=== PATIENT | male | born 1965 | race African-American/Black ===

== ENCOUNTER 2025-02-11 04:52 | Emergency (ER) | payer BC, SELFPAY ==
--- NOTE | ~2025-02-11 | CT_ITS ---
Noncontrast CT scan of the lumbar spine CLINICAL HISTORY: Pain TECHNIQUE: Axial noncontrast imaging of the lumbar spine was performed. Sagittal and coronal reformat hazel images were constructed. Dose reduction technique was used on this scan by utilizing automated ex posure control and iterative reconstruction technique. The dose-length product (DLP) was 1194.38 mGy- cm. FINDINGS: There is no fracture or subluxation of the lumbar spine. Vertebral bodies maintain normal h eight and alignment. At L1-L2, there is no significant disc bulge or herniation. There is mild facet hypertrophy. No spina l canal stenosis or neural foraminal narrowing. At L2-L3, there is no significant disc bulge or herniation. There is moderate facet/ligamentum flavum hypertrophy. There is mild central canal stenosis. Neural foramina are preserved. At L3-L4, there is advanced degenerative disc narrowing. There is disc bulge and severe facet arthrop athy. There is moderate central canal stenosis/thecal sac compression. There is severe left neural fo raminal narrowing, and moderate to severe right neural foraminal narrowing. At L4-L5, there is mild disc bulge with moderate facet hypertrophy. There is moderate central canal s tenosis/thecal sac compression. There is mild bilateral neural foraminal narrowing. L5-S1, there is no significant disc bulge or herniation. No spinal canal stenosis or neural foraminal narrowing. Paravertebral soft tissues are unremarkable. Impression: Moderate to advanced degenerative spondylosis at L3-L4 and L4-L5, as detailed above. Mild to moderate degenerative spondylosis at L2-L3. Reviewed, dictated and finalized at [facility]. Impression: Moderate to advanced degenerative spondylosis at L3-L4 and L4-L5, as detailed shelley agrawal. Mild to moderate degenerative spondylosis at L2-L3.
--- NOTE | ~2025-02-11 | XR_ITS ---
Right Knee Technique: AP, lateral, and oblique views were obtained. Clinical History: Pain Findings: No fracture or dislocation is seen. Osseous alignment is anatomic. Joint spaces are preserv ed without degenerative or erosive change. Soft tissues are unremarkable. No joint effusion is seen. Impression: Unremarkable right knee radiographs. Reviewed, dictated and finalized at location . Impression: Unremarkable right knee radiographs.
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
[2025-02-11 04:57] VITALS: BP 187/107; PULSE 63; RESP 16; TEMP 36.3; O2SAT 100
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
[2025-02-11] MEDS: HYDROcodone/acetaminophen (*CRX) 5-325 MG TABLET 1 TAB PO (05:21)
--- OUTSIDE RECORDS SUMMARY | 2025-02-11 06:03 | XMS_ITS | Clinical Summary ---
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 Gender Identity Not on file Sexual Orientation Not on file Last Filed Vital Signs Vital Sign Reading Time Taken Comments Blood Pressure 168/65 12/14/2016 12:32 PM CDT Pulse 82 12/14/2016 12:32 PM CDT Temperature 36.7 C (98 F) 12/14/2016 12:32 PM CDT Respiratory Rate - - Oxygen Saturation 99% 12/14/2016 12:32 PM CDT Inhaled Oxygen Concentration - - Weight 106.6 kg (235 lb) 12/14/2016 12:32 PM CDT Height 185.4 cm (6' 1) 12/14/2016 12:32 PM CDT Body Mass Index 31 12/14/2016 12:32 PM CDT Plan of Treatment Health Maintenance Due Date Last Done Comments Colon Cancer Screening-Colonoscopy 1965 Depression Screening 1965 Hepatitis C Screening 1965 Prostate Cancer Screening-PSA 1965 DTaP/Tdap/Td Vaccine (1 - Tdap) 11/26/1974 Hepatitis B Screening 11/26/1981 Regular Well Visit/Exam 18-64 11/26/1981 Zoster Vaccine (2 of 2) 04/23/2023 02/26/2023 Covid-19 Vaccine ( season) 2024 08/07/2021, 11/12/2020, 10/22/2020 Influenza Vaccine (Season Ended) 2025 08/07/2021, 05/14/2019, 04/16/2015, Additional history exists Pneumococcal vaccine <65 Aged Out No longer eligible based on patient's age to complete this topic Insurance [employer] [place] Care Teams Director Business Development Relationship Specialty Start Date End Date Mark Paiz MD PCP - General Transplant Surgery 10/23/23
--- OUTSIDE RECORDS SUMMARY | 2025-02-11 06:03 | XMS_ITS | Clinical Summary ---
Author Organization [facility] Address [address] [place] [address] Care Team Providers Care Spinning Bath Person Name Role Phone Joyce Polk CESAR Primary Care Provider [phone] Allergies Active Allergy Reactions Criticality Noted Date Comments Vaccinium Angustifolium Anaphylaxis High 04/12/2018 Medications [place]-3 Fatty Acids (FISH OIL) 500 MG capsule Activ e aspirin EC (ASPIRIN EC) 81 MG tabletIndications: Health care maintenance Take 1 tablet (81 mg total) by mouth daily. Appointment with new provider needed for future refills. Call [phone] to schedule. 15 tablet 12/17/19 20 Active sucralfate 1 G tablet Take 1 tablet (1 g total) by mouth 4 (four) times daily. 120 tablet 08/19/19 22 Active famotidine 20 MG tablet Take 1 tablet (20 mg total) by mouth 2 (two) times daily. 60 tablet 08/19/19 22 Active HYDROcodone-acetam inophen 5-325 MG tabletIndications: Acute Pain < 3 Day Supply Take 1 tablet by mouth every 6 (six) hours as needed for Pain. Indications: Acute Pain < 3 Day Supply 7 tablet 08/19/19 22 Active ondansetron 4 MG disintegrating tablet Take 1 tablet (4 mg total) by mouth every 4 (four) hours as needed for Nausea. 20 tablet 08/19/19 22 Active lisinopril (PRINIVIL) 2.5 MG tabletIndications: Essential hypertension Take 1 tablet by mouth once daily 90 tablet 12/07/20 22 Active metFORMIN (GLUCOPHAGE) 1000 MG tabletIndications: Type 2 diabetes mellitus with hyperglycemia, without long-term current use of insulin ([facility]) TAKE 1 TABLET BY MOUTH TWICE DAILY WITH MEALS 180 tablet 07/19/20 Active metFORMIN (GLUCOPHAGE) 1000 MG tabletIndications: Type 2 diabetes mellitus with hyperglycemia, without long-term current use of insulin ([facility]) Take 1 tablet (1,000 mg total) by mouth 2 (two) times daily with meals. 180 tablet 07/19/20 Active lisinopril (PRINIVIL) 2.5 MG tabletIndications: Essential hypertension Take 1 tablet (2.5 mg total) by mouth daily. 90 tablet 07/19/20 Active SITagliptin (JANUVIA) 100 MG tabletIndications: Type 2 diabetes mellitus with hyperglycemia, without long-term current use of insulin ([facility]) Take 1 tablet (100 mg total) by mouth daily. 90 tablet 07/19/20 Active metoprolol succinate ER (TOPROL-XL) 50 MG 24 hr tabletIndications: Essential hypertension Take 1 tablet (50 mg total) by mouth daily. 90 tablet 07/19/20 Active glyBURIDE (DIABETA) 5 MG tabletIndications: Type 2 diabetes mellitus with hyperglycemia, without long-term current use of insulin ([facility]) Take 2 tablets (10 mg total) by mouth 2 (two) times daily with meals. 360 tablet 07/19/20 Active simvastatin (ZOCOR) 80 MG tabletIndications: Hypercholesterolem ia Take 1 tablet (80 mg total) by mouth nightly at bedtime. 90 tablet 1 08/02/20 Active Active Problems Problem Noted Date Diagnosed Date Snoring 12/08/2020 Pancreatitis ([facility]) 05/14/2019 Rotator cuff arthropathy of both shoulders 03/07 Traumatic complete tear of l eft rotator cuff, initial encounter 03/07/2019 Osteoarthritis of glenohumeral joints, bilateral 03/07/2019 Calculus of kidney 11/01/2017 Hydronephrosis, right 11/01/2017 DM2 (diabetes mellitus, type 2) ([facility] ) 11/01/2017 Hypertension 11/01/2017 Hypercholesterolemia 11/01/2017 Right ureteral stone 11/01/2017 [place] (acute kidney injury) 11/01/2017 Pulmonary nodules/lesions, multiple 12/15/2016 Erectile dysfunction 10/21/2015 Immunizations Immunization Administration Dates Next Due Afluria 36 MONTHS+ (Prefilled Syringe IIV4) 09/2018 Influenza Adult (Generic) 04/16/2015 Family History Medical History Relation Comments Diabetes Mother Hypertension Mother Relation Status Comments Mother Alive Social History Tobacco Use Types Packs/Day Years Used Date Smoking Tobacco: Never Smokeless Tobacco: Never Tobacco Cessation:Counseling Given: No Alcohol Use Standard Drinks/Week Comments Yes 0 (1 standard drink = 0.6 oz pur e alcohol) occassional vodka drinker PHQ-2 Answer Date Recorded PHQ-2 Score - If the patient scores above 3, please move on to questions 3-9 0 12/08/2020 Sex and Gender Information Value Date Recorded Sex Assigned at Not on file Legal Sex Male 5:09 PM CDT Gender Identity Not on file Sexual Orientation Not on file Last Filed Vital Signs Vital Sign Reading Time Taken Comments Blood Pressure 110/76 08/31/2021 7:03 AM [facility] Pulse 88 08/31/2021 7:03 AM [facility] Temperature 36.1 C (97 F) 08/31/2021 7:03 AM [facility] Respiratory Rate 18 08/31/2021 7:03 AM [facility] Oxygen Saturation 96% 08/31/2021 7:03 AM [facility] Inhaled Oxygen Concentration - - Weight 101.4 kg (223 lb 9.6 oz) 08/31/2021 7:03 AM [facility] Height 185.4 cm (6' 1) 08/31/2021 7:03 AM [facility] Body Mass Index 29.5 08/31/2021 7:03 AM [facility] Plan of Treatment Health Maintenance Due Date Last Done Comments Kidney Health Evaluation 1963 Annual Physical 11/26/1966 Diabetes: Retinopathy Eye Exam 11/26/1981 Hepatitis C 11/26/1981 DTaP, Tdap and Td Vaccines (1 - Tdap) 11/26/1982 Pneumococcal Vaccine: 50+ Years (1 of 2 - PCV) 11/26/1982 Zoster Vaccines (1 of 2) 11/26/2013 Lipid Panel 03/09/2021 03/09/2020, 100 10/2018, 10/28/2018, Additional history exists Hemoglobin A1C 10/12/2021 04/14/2021, 02/11, 05/15/2019, Additional history exists COVID-19 Vaccine (2023- season) 2024 PHQ-2 (Physician [place]) 08/13/2024 Colorectal Cancer Screening Colonoscopy (10 Years) 07/14/2030 07/14/2020, 07/14/2020, 05/06/2014 RSV Immunization or 60+ Years (1 - 1-dose 75+ series) 11/26/2038 Meningococcal B Vaccine Aged Out No l onger eligible based on patient's age to complete this topic Meningococcal Vaccine Aged Out No cait eric eligible based on patient's age to complete this topic RSV Immunizations Under 20 Months Aged Out No longer eligible based on patient's age to complete this topic Medical Devices Implanted Type Area Special Machine Operator Device Identifier Shelf Expiration Date Model / Serial / Lot [employer] Inlay [place] Multilength Implanted:Qty: 1 on 11/02/2017 by Nick Farrar MD at [facility] Stent Right: Ureter [employer] 04/21/2020 [id number] / / [id number] Procedures Procedure Name Priority Date/Time Associated Diagnosis Comments HEMOGLOBIN, GLYCOSYLATED Routine 04/14/2021 Type 2 diabetes mellitus with hyperglycemia, without long-term current use of insulin COLONOSCOPY Routine 07/14/2020 8:44 AM [facility] LIPID PANEL Routine 03/09/2020 7:55 AM CDT Type 2 diabetes mellitus without complication, without long-term current use of insulin Hypercholesterolemi a from Last 3 Months or Most Recently Relevant to Health Maintenance Results * HEMOGLOBIN, GLYCOSYLATED (04/14/2021) HGB A1C 11.1 % [facility] 04/14/2021 us Hermes Macisa MD LABORATORY Final Result [facility] [address] [place] [address], [place] [phone] * Colonoscopy (07/14/2020 8:44 AM [facility]) Meena Kumar MD - 07/14/2020 8:44 AM [facility] Meena Fink MD 07/14/2020 9:19 AM MEENA FINK MD, FACG, FACP COLONOSCOPY This is a 54-year-old male with history of DM II, HTN and HLD who now presents for colonoscopy for personal history of adenomatous colon polyps. GI review of systems is negative. No endocarditis risk factors. Allergies Allergen Reactions Blueberries [Vaccinium Angustifolium] Anaphylaxis Medications: see list. Family history: negative for colon cancer. VITALS: Stable. LUNGS: Clear. HEART: RRR. S1/S2 normal. ABDOMEN: NABS/NT. The procedure of colonoscopy, its indications, alternatives of barium studies and risks including perforation, bleeding, infection, reaction to medication as well as the possible need for blood or surgery were discussed with the patient prior to the procedure. The patient voices understanding, agrees to proceed and provides informed consent. COLONOSCOPY INDICATION: Personal history of colon polyps. POST-OP: Normal. SEDATION: Per Anesthesia PREP: Good. With the patient in the left lateral decubitus position, the Olympus [id number] colonoscope was introduced into the rectum and advanced easily to the Terminal Ileum. Careful inspection of the mucosa was made upon insertion and withdrawal of the endoscope. FINDINGS: Terminal ileum: distal 5 cm normal. Cecum, ascending colon, transverse colon, descending colon, sigmoid colon and rectum including retroflexion normal. No masses, polyps, AVMs, colitis or diverticulosis seen. No complications, blood loss or implants. ASSESSMENT AND PLAN: Personal history of colon polyps: - Colonoscopy 05-06-2014 with 8 mm SC tubular adenoma - Colonoscopy 07-14-2020: normal - Screening colonoscopy in 10 years Thank you for allowing me to care for your patient. He will follow-up with Dr. Macias as needed. Meena Fink M.D. Meena Fink MD GI PROCEDURE ORDERABLES Fin al Result * (ABNORMAL) LIPID PANEL (03/09/2020 7:55 AM CDT) CHOLESTEROL 215(H) <200 MG/DL 03/09/2020 9:00 AM CDT [facility] TRIGLYCERIDES 121 <150 MG/DL 03/09/2020 9:00 AM T [facility] HDL 38(L) >40.0 MG/DL 03/09/2020 9:00 AM T [facility] LDL (CALCULATED) 153(H) <100 MG/DL 03/09/2020 9:00 AM T [facility] NON HDL CHOLESTEROL 177(H) <130 MG/DL 03/09/2020 9:00 AM T [facility] CHOL/HDL RATIO 5.7(H) 0.0 - 4.5 03/09/2020 9:00 AM T [facility] VLDL CALCULATION 24 5 - 55 MG/DL 03/09/2020 9:00 AM [facility] LIPID INTERPRETATION 03/09/2020 9:00 AM [facility] Comment: [facility] CONCENSUS REPORT RECOMMENDATIONS: ADULT CHILD LOW RISK: CHOLESTEROL <200 <170 TRIGLYCERIDE <150 --- HDL >=60 --- LDL <100 <110 BORDERLINE: CHOLESTEROL 200-239 170-199 TRIGLYCERIDE 150-199 --- HDL 40-59 --- LDL 100-159 110-129 HIGH RISK: CHOLESTEROL >=240 >=200 TRIGLYCERIDE >=200 --- HDL <40 --- LDL >=160 >=130 03/09/2020 7:55 AM CDT Hermes Macias MD LABORATORY Final Result [facility] [address] [place] [address], [place] [phone] from Last 3 Months or Most Recently Relevant to Health Maintenance Insurance [facility] Advance Directives * Full Code (Latest Code Status on File) Date Activated Date Inactivated Comments 05/14/2019 4:10 AM 05/16/2019 4:28 PM Care Teams Spinning Bath Person Relationship Specialty Start Date End Date Joyce Polk NP [address] [place] [address] PCP - General NURSE PRACTITIONER 02/10/22
--- OUTSIDE RECORDS SUMMARY | 2025-02-11 06:03 | XMS_ITS | Encounter Summary ---
Author Organization [facility] Address [address] [place] [address] Care Team Providers Care Quality Assurance Supervisor Trim Name Role Phone Olivier Ross MD Primary Care Provider [phone] Encounter Details Date Type Department Care Team (Late st Contact Info) Description 02/09/2025 Telephone [facility] Primary Care - [facility] [id number] [place] [phone] [place] [address] [address] Social History Tobacco Use Types Packs/Day Years Used Date Smoking Tobacco: Never Alcohol Use Standard Drinks/Week Comments Yes 0 (1 standard drink = 0.6 oz pur e alcohol) occasionally Feeling Safe Answer Date Recorded Are you in a relationship wi th someone who hurts you emotionally and/or physically? No 01/06/2024 Sex and Gender Information Value Date Recorded Sex Assigned at Not on file Legal Sex Male 10:05 AM CDT Gender Identity Not on file Sexual Orientation Not on file documented as of this encounter Miscellaneous Notes * Telephone Encounter - Jeanie Aguero - 02/10/2025 8:34 AM CDT 02/09/2025 8:59 AM Attempted to contact patient/caregiver regarding Insulin and insurance. No answer. Left voice mail/message to return our call. If patient/caregiver calls back, contact center please transfer caller to N line or clinic back line. Jeanie Per Dr Ross: 1.''Please check with the pt regarding the status of his Insulins. What does he currently using forhis diabetes? 2. Does he have new insurance? plan is no longer active. Per PA dept : Rx ID: [id number] Rx Bin: [id number] Rx PCN: [id number] Rx Group: [id number] * Telephone Encounter - Jeanie Aguero - 02/09/2025 8:57 AM CDT 02/09/2025 8:59 AM Attempted to contact patient/caregiver regarding Insulin and insurance. No answer. Left voice mail/message to return our call. If patient/caregiver calls back, contact center please transfer caller to PCN line or clinic back line. Jeanie Per Dr Ross: 1.''Please check with the pt regarding the status of his Insulins. What does he currently using forhis diabetes? 2. Does he have new insurance? plan is no longer active. Per PA dept : Rx ID: [id number] Rx Bin: [id number] Rx PCN: [id number] Rx Group: [id number] documented in this encounter Plan of Treatment Upcoming Encounters Date Type Department Care Team (Late st Contact Info) Description 03/31/2025 8:20 AM CDT Office Visit [facility] Primary Care - [facility] [id number] [place] [id number] [place] [id number] [place] [phone] documented as of this encounter Visit Diagnoses Not on filedocumented in this encounter Care Teams Quality Assurance Supervisor Trim Relationship Specialty Start Date End Date Olivier Ross MD [address] [place] [phone] PCP - General Voice Network Administrator 09/08/24 documented as of this encounter
--- OUTSIDE RECORDS SUMMARY | 2025-02-11 06:03 | XMS_ITS | Referral Summary ---
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
--- OUTSIDE RECORDS SUMMARY | 2025-02-11 06:03 | XMS_ITS | Clinical Summary ---
Author Organization [facility] Address [address] [place] [address] Care Team Providers Care Head Of Design Name Role Phone Trung Fernandezony Jony Primary Care Provider Source Comments [facility],non-owned Affiliates and Associated Physician Practices is amultiple site organization consisting of ambulatory clinics and hospital sitesin [place], [place], [place] and [place]. This disclosure is being madepursuant to the Care Everywhere program and may not contain all information available regarding this patient. Last updated 18.[facility] Allergies No known active allergies Medications * Be aware that medications may not be up to date on this document. Alwaysverify current medications with the patient. lisinopril (PRINIVIL; ZESTRIL) 10 MG tablet Take 10 mg by mouth once daily Active simvastatin (ZOCOR) 10 MG tablet Take 10 mg by mouth at bedtime Active METFORMIN HCL ER, MOD, PO Active [place]-3 Fatty Acids (FISH OIL) 500 MG CAPS capsule Take by mouth 2 times daily Active aspirin (ASPIRIN) 325 MG tablet Take 325 mg by mouth once daily Active glyBURIDE (DIABETA; MICRONASE) 1.25 MG tablet Take 1.25 mg by mouth daily with breakfast Active vardenafil (LEVITRA) 20 MG tablet Take 1 Tab by mouth once daily as needed (as directed for Erection) 7 Tab 0 5 Active Family History Medical History Relation Name Comments Diabetes Father Hypercholesterolemia Father Diabetes Mother Hypercholesterolemia Mother Relation Name Status Comments Father (Age 50) Mother Alive Social History Tobacco Use Types Packs/Day Years Used Date Smoking Tobacco: Never Alcohol Use Standard Drinks/Week Comments No 0 (1 standard drink = 0.6 oz pur e alcohol) Sex and Gender Information Value Date Recorded Sex Assigned at Not on file Legal Sex Male 9:22 AM CDT Gender Identity Not on file Sexual Orientation Not on file Occupation Industry Job Start Date Job End Date sales Not on file Not on file Not on file Last Filed Vital Signs Vital Sign Reading Time Taken Comments Blood Pressure 104/76 04/28/2015 10:11 AM CDT Pulse 77 04/28/2015 10:11 AM CDT Temperature - - Respiratory Rate - - Oxygen Saturation - - Inhaled Oxygen Concentration - - Weight 106.6 kg (235 lb) 04/28/2015 10:11 AM CDT Height 185.4 cm (6' 1) 04/28/2015 10:11 AM CDT Body Mass Index 31 04/28/2015 10:11 AM CDT Plan of Treatment Health Maintenance Due Date Last Done Comments COLOGUARD (AGES 45-75) - COL ON CA SCREENING 1963 COLON MONITORING 1963 COLONOSCOPY - COLON CA SCREENING 1963 CT COLONOGRAPHY - COLON CA SCREENING 1963 Colorectal Cancer Screening 1963 FIT - COLON CA SCREENING 1963 FLEX SIG - COLON CA SCREENING 1963 HIV SCREENING 11/26/1978 HEPATITIS C SCREENING 11/22/1981 DTAP/TDAP/TD VACCINES (1 - Tdap) 11/26/1982 PNEUMOCOCCAL VACCINE 50+ (1 of 1 - PCV) 11/26/2013 ZOSTER VACCINE (1 of 2) 11/26/2013 COVID-19 VACCINE (1 - 2023-2 5 season) 2024 DEPRESSION SCREENING 08/13/2024 INFLUENZA VACCINE (Season Ended) 2025 Respiratory Syncytial Virus (RSV) Vaccine Pt: or over 60 yrs (1 - 1-dose 75+ series) 11/26/2038 HEPATITIS B VACCINE Aged Out No longe r eligible based on patient's age to complete this topic HIB VACCINE Aged Out No longer eligi ble based on patient's age to complete this topic HPV VACCINE Aged Out No longer eligi ble based on patient's age to complete this topic MENINGOCOCCAL (Group B) VACC INE SHARED DECISION-MAKING Aged Out No longer eligibl e based on patient's age to complete this topic MENINGOCOCCAL GROUPS A/C/Y/W VACCINE Aged Out No longer eligible b ased on patient's age to complete this topic Insurance Care Teams Head Of Design Relationship Specialty Start Date End Date Fracisco Fernandez DO PCP - General Family Medicine 04/28/15
--- OUTSIDE RECORDS SUMMARY | 2025-02-11 06:03 | XMS_ITS | Encounter Summary ---
Author Organization [facility] Address [address] [place] [address] Care Team Providers Care Table Cover Folder Name Role Phone Olivier Ross MD Primary Care Provider Encounter Details Date Type Department Care Team (Late Contact Info) Description 01/29/2025 Results Follow-Up [address] [address] Olivier Ross MD [address] [place] [phone] POC HEMOGLOBIN A1C Social History Tobacco Use Types Packs/Day Years [...] on file documented as of this encounter Plan of Treatment Upcoming Encounters Date Type Department Care Team (Late st Contact Info) Description 03/31/2025 8:20 AM CDT Office Visit [facility] - [address] [address] Olivier Ross MD [address] [place] [phone] documented as of this encounter Visit Diagnoses Not on filedocumented in this encounter Care Teams Table Cover Folder Relationship Specialty [place] [address] [address] PCP - General Steamer Tender 09/08/24 documented as of this encounter
--- OUTSIDE RECORDS SUMMARY | 2025-02-11 06:03 | XMS_ITS | Data Portability ---
Author Organization [facility], [facility] Address [address] [place] [address] Assessment No assessment recorded. Plan of Treatment Reminders Order Date Submit Date Provider Last Modified By Organization Details Last Modified Time Details Appointments None record ed. Lab None record ed. Referral None record ed. Procedures None record ed. Surgeries None record ed. Imaging None record ed. Medication Orders None record ed. Patient TargetsNo targets recorded. Patient Instructions Encounter Date Encounter Id Patient Instructions Last Modified By Organization Details Last Modified Time 12/04/2019 [id number] Erection Problems: Care Instructions [email or web address] Not available 12/04/2019 11:44:12 he had a good result from the Tri Mix test dose and I will write him a prescription and I will start him at 15 units and I will increase to a maximum of 20 units and I also gave him very detailed instructions My nurse gave him the reversal agent and we will order the Tri Mix [email or web address] Not available 12/04/2019 11:44:03 05/31/2020 [id number] with this patient's diabetes and his hypertension the Tri Mix injections. Working and we just started those in November and they were working very well and now he has gone up to very high dose and volume with really no results I told him he will need a penile prosthesis. I mentioned to him that there was a urologist named Dr. Adan in [place] that I think does penile prosthesis but he lives closer to [facility] so we will give him the name of someone else in that area code is he came here to see me years ago because I took care of him as a patient when I was covering [facility] and he has been staying with me since that time 15 min face time [email or web address] Not available 05/31/2020 14:44:21 Reason for Referral None Reported. Problems Name Problem SNOMED Code Status Onset Date Resolution Date Notes Provider Name and Address Organization Details Recorded Time History of male erectile disorder 084526020 Active 020 DIANN Garsia [address], [address] , [facility] 0 10:09:40 Problem Notes None recorded. Procedures Surgical History Date Name Laterality Status Provider Name and Address Organization Details Recorded Time 0 TriMix injection completed Jeramie Campos MD [address], [place], [address], [facility] 12/04/2019 11:48:15 8 Kidney Stones completed Latanya Petit [facility] 12/04/2019 18:21:26 6 surgical repair completed Latanya Petit [facility] 12/04/2019 18:23:37 Imaging Results None recorded. Procedure Notes None recorded. Medical Equipment None Reported. Allergies Allergen ID Allergen Name Allergen Category Reaction Reaction Severity Criticality Documentation Date Start Date Code Code System Note Provider Name and Address Organization Details Recorded Time 584451 blueberry extract food Not available Not available Not available 12/04/2019 81194 29 RxNorm Tram bill, [facility] 0 10:58:38 Medications Name Sig Start Date Stop Date Status Note LastModified by Organization Details LastModified Time glyburide 5 mg tablet active Not Available Not Available No t Available ibuprofen 800 mg tablet active Not Available Not Available No t Available metoprolol succinate ER 50 mg tablet,extend ed release 24 hr active Not Available Not Available Not Available simvastatin 80 mg tablet active Not Available Not Available Not Available aspirin 81 mg tablet,delaye d release TK 1 T PO DAILY active Not Available Not Available No t Available tramadol 50 mg tablet active Not Available Not Available No t Available simvastatin 40 mg tablet active Not Available Not Available Not Available tamsulosin 0.4 mg capsule TK ONE C PO DAILY active Not Available Not Available No t Available benzonatate 100 mg capsule TAKE 1 CAPSULE BY MOUTH THREE TIMES DAILY NEEDED FOR COUGH active Not Available Not Available No t Available metformin 1,000 mg tablet active Not Available Not Available Not Available ibuprofen 600 mg tablet active Not Available Not Available No t Available lisinopril 2.5 mg tablet active Not Available Not Availabl e Not Available Vitals Date Recorded Oxygen saturation Oxygen saturation in Arterial blood by Pulse oximetry Respiratory rate Body temperature Heart rate Systolic blood pressure Diastolic blood pressure Provider Name and Address Organization Details Last Updated DateTime 0 98 % 98 % 16 /min 97.2 [degF] 72 /min 136 mm[Hg] 76 mm[Hg] [facility] 0 10:58:27 Date Recorded Oxygen saturation Oxygen saturation in Arterial blood by Pulse oximetry Respiratory rate Body temperature Heart rate Systolic blood pressure Diastolic blood pressure Provider Name and Address Organization Details Last Updated DateTime 0 98 % 98 % 18 /min 97.9 [degF] 68 /min 129 mm[Hg] 77 mm[Hg] [facility] 0 14:14:14 Social History None recorded. Functional Status None recorded. Mental Status None recorded. Family History Nothing Reported. Medical History Condition Response Other #2 N STROKE N DIABETES N HEART ARRHYTHMIA N PROSTATE N COPD N RADIATION / CHEMOTHERAPY N SEIZURES N BOWEL PROBLEMS N BACK / NECK PROBLEMS N HAVE YOU BEEN HOSPITALIZED OR SEEN IN [facility] IN THE PAST YEAR ? Y THYROID DISEASE N sleep apnea N Surgery N DIALYSIS N DEPRESSION N HIV / AIDS N OBESITY N ANEURYSM N GERD N OSTEOPOROSIS N URINARY/BLADDER/KIDNEY PROBLEMS N Other #1 N HEART ATTACK ([place])/ANGINA N ARTHRITIS N USE OF BLOOD THINNERS N HEADACHES N GASTROINTESTINAL BLEEDING N CAD N HEPATITIS / LIVER DISEASE N PULMONARY DISEASE N GOUT N SLEEP DISORDER N PSYCHIATRIC CARE N HERPES N CHF N PACEMAKER N KIDNEY DISEASE N Myocardial Infarction N LUNG DISORDER N MULTIPLE SCLEROSIS N Hyperlipidemia Y HYPERTENSION N CANCER: SPECIFY N ANEMIA/BLOOD DISORDER N PULMONARY EMBOLISM N HEART DISEASE N CORONARY ARTERY DISEASE N TUBERCULOSIS N GLAUCOMA N ABDOMINAL PAIN Y Past Encounters Encounter ID Performer Location Encounter Start Date Encounter Closed Date Diagnosis/Indication Diagnosis SNOMED-CT Code Diagnosis ICD10 Code Diagnosis Note [id number] Jeramie Campos MD [facility] [address] [place] [address] 12/04/2019 10:31:59 12/04/2019 11:32:14 Impotence of organic origin 644333744 N52.9 [id number] Jeramie Campos MD [facility] [address] [place] [address] 05/31/2020 13:59:42 05/31/2020 14:46:07 Primary erectile dysfunction 394529798 N52.9 Health Concerns Section Related Observation LastModified by Organization Detai ls LastModified Time None Recorded Concern Status LastModified by Organization Details LastModified Time None Recorded Advance Directives Directive None Recorded Payers Insurance Date Sequence Insurance Name Policy Number Policy Patterson Covered Member ID Patterson Member ID Guarantor Name 05/28/2020 1 [place] [id number] Fracisco Molina [id number] Fracisco Molina Notes Date Note Type Note Provider Name and Address Organization Details Recorded Time 12/04/2019 text/html pt here for ED. Stated he was previously treated for kidney stone in 2018.Pt stated he gets around a 50% erection. Pt has failed on cilas, viagra and levitra. Jeramie Capmos MD [address], [address], [facility] 12/04/2019 11:48:22 05/31/2020 text/html pt here for 6mo f/u stated that the Tri mix stopped working x1mo ago. Pt had increased to 20 units over the last few months.Pt stated he also noticed a knot on the top of his penis x3wks ago, denied pain or swelling.Stated he was previously treated for kidney stone in 2018.Pt has failed on cilas, viagra and levitra. Jeramie Campos MD [address], [address], [facility] 05/31/2020 14:45:09
--- OUTSIDE RECORDS SUMMARY | 2025-02-11 06:03 | XMS_ITS | Clinical Summary ---
Author Organization [facility] Administrative Offices Address [address] [place] [address] Care Team Providers Care Welcome Desk Agent Name Role Phone Olivier Ross MD Primary Care Provider [phone] Allergies Active Allergy Reactions Criticality Noted Date Comments Blueberry Anaphylaxis,Other (See Comments) High Medications albuterol sulfate HFA 90 mcg/actuation aerosol inhaler Take 2 Puffs by inhalation every 6 hours as needed for Wheezing or Shortness of Breath. 8.5 Gram 03/26/20 24 Active aspirin (ECOTRIN EC) 81 mg Tablet, Delayed Release (E.C.) Take 81 mg by mouth daily. Active metoprolol succinate (TOPROL XL) 50 mg Extended Release 24 hour tablet Take 1 Tablet (50 mg) by mouth daily. 90 Tablet 2 09/08/19 25 Active atorvastatin (LIPITOR) 40 mg tabletIndications :Other hyperlipidemia Take 1 Tablet (40 mg) by mouth daily. 100 Tablet 3 09/09/19 25 Active metFORMIN (GLUCOPHAGE XR) 750 mg Extended Release 24 hour tabletIndications :Type 2 diabetes mellitus with diabetic microalbuminuria, with long-term current use of insulin ([facility]) Take 1 Tablet (750 mg) by mouth 2 times daily with meals. DIABETES 100 Tablet 3 10/01/19 25 Active ezetimibe (ZETIA) 10 mg tablet Take 1 Tablet (10 mg) by mouth daily. 90 Tablet 1 10/25/19 25 Active insulin glargine (LANTUS) 100 unit/mL pen syringe Inject 40 Units by subcutaneous injection daily at bedtime. 15 mL 3 01/30/20 25 Active insulin aspart (NovoLOG) 100 unit/mL injectionIndicati ons:Type 2 diabetes mellitus with diabetic microalbuminuria, with long-term current use of insulin (CMS/HCC) Use three times a day, before meals. Maximum 20 units per injection 15 mL 2 01/30/20 25 Active FreeStyle Sriram 3 Plus Sensor DeviceIndications :Type 2 diabetes mellitus with diabetic microalbuminuria, with long-term current use of insulin (CMS/HCC) USE DIRECTED AND CHANGE EVERY 15 DAYS 2 Each 3 01/30/20 25 Active FreeStyle Sriram 3 Plus Sensor Device USE DIRECTED AND CHANGE EVERY 15 DAYS 08/04/20 24 2024 Discontin ued(Reord er) NovoLOG Flexpen U-100 Insulin 100 unit/mL (3 mL) pen syringe INJECT SUBCUTANEOUSLY THREE TIMES DAILY WITH MEALS. MAX DAILY DOSE UP TO 100 UNITS. 07/14/20 24 2024 Discontin ued(Alter gabriela therapy prescribe d) insulin degludec (TRESIBA) 100 unit/mL pen syringe INJECT UP TO 50 UNITS SUBCUTANEOUSLY ONCE DAILY 07/14/20 24 2024 Discontin ued(Alter gabriela therapy prescribe d) dapagliflozin propanediol (Farxiga) 10 mg TabletIndications :Type 2 diabetes mellitus with diabetic microalbuminuria, with long-term current use of insulin (CMS/HCC) Take 1 Tablet (10 mg) by mouth daily. 30 Tablet 3 10/31/19 25 2024 Discontin ued(Cost) dapagliflozin propanediol (Farxiga) 10 mg Tablet Take 1 Tablet (10 mg) by mouth daily in the morning. 28 Tablet 11/22/19 25 2024 Discontin ued(Cost) Active Problems Problem Noted Date Diagnosed Date Type 2 diabetes mellitus wit h diabetic microalbuminuria, with long-term current use of insulin 09/08/2024 Overview (10/01/2024): Lab Results Component Value Date [id number] 9.4 (A) 09/08/2024 09/08/24 -Uncontrolled, he is managed by Dr. Yumiko Honeycutt, he would like to try Ozempic or Mounjaro however he has a history of pancreatitis and constipation advised to talk to his attendant sales, could consider starting Farxiga however he has a penile implant and nephrolithiasis apparently has had a UTI in the past advised him to first discuss with urology. 10/01/24 -Will start Farxiga, time in range on freestyle sriram is 48%, 16% very high -Discussed he may need to decrease insulin if blood sugar starts to lower also encouraged him to increase physical activity and provided written resources for diabetic diet. -Will change to metformin XR as he does sometimes have urgency of stool and diarrhea when he takes the regular metformin. - MELO/ARB: olmesartan - Statin (>40yo): atorvastatin 40 mg - Current glycemic control meds: metformin XR and basal bolus insulin - Complications: Hyperglycemia, erectile dysfunction, microalbuminuria Assessment & Plan (10/01/2024 10:20 AM SVP RESEARCH & EBUSINESS OPERATIONS): Inadequately controlled. Start Farxiga 10 mg samples provided, change metformin to XR , increase physical activity and decrease carbohydrate intake. Assessment & Plan (09/08/2024 12:02 PM SVP RESEARCH [employer] EBUSINESS OPERATIONS): {Diabetes: Inadequate control. Managed by endocrinology. Follow-up with Dr. Nunes and discuss use of SGLT2 Farxiga with his urologist given history of penile implant and kidney stones Benign hypertension 09/08/2024 Overview (10/01/2024): BP Readings from Last 3 Encounters: 10/01/24 138/80 09/17/24 134/72 09/08/24 (!) 170/88 09/08/24 - stop lisopril start olmesartan, check cmp in two weeks 10/01/24 - blood pressure improved, still a little elevated, starting farxiga for DM will see if this improves it as well. Current BP regimen: olmesartan 20 mg daily, metoprolol xl 50, farxiga Past meds: lisinopril Assessment & Plan (10/01/2024 10:17 AM [employer] RESEARCH [employer] EBUSINESS OPERATIONS): Improved Recommend weight loss Starting Farxiga for diabetes will see if this also improves blood pressure. Assessment & Plan (09/08/2024 11:58 AM [employer] RESEARCH [employer] EBUSINESS OPERATIONS): Stop lisinopril and add olmesartan recheck labs in 2 weeks continue metoprolol. Recommend low-salt diet and weight loss Constipation 09/08/2024 Overview (09/08/2024): 09/08/24 -On Linzess per previous PCP which does help for him. Assessment & Plan (09/08/2024 11:59 AM [employer]EARCH [employer] EBUSINESS OPERATIONS): Continue Linzess increase fiber and fluids in the diet. Tingling of left upper extremity 09/08/2024 Overview (09/08/2024): 09/08/24 - chronic and present for years, left upper extremity tingling, no numbness, normal strength and sensation in the hand, intermittent, occurs both at rest in bed and with activity, cannot identify triggers, has hx of shoulder surgery. Assessment & Plan (09/08/2024 12:12 PM [employer] RESEARCH [employer] EBUSINESS OPERATIONS): Cervical spine xray, emg of JUAN MARKS (dyspnea on exertion) 09/08/2024 Overview (10/01/2024): 09/08/24 -Chronic, no chest pain, he does have a history of asthma which he reports has been controlled with albuterol, he has PFTs ordered but has not completed, given history of early CAD in the family and diabetes that is uncontrolled will refer to cardiology for further workup and stress echo. 10/01/24 -He has seen Dr. Pike cardiology, stress echo and coronary artery calcium score ordered. Assessment & Plan (10/01/2024 10:22 AM [employer] RESEARCH [employer] EBUSINESS OPERATIONS): Follow-up with Dr. Salazar cardiology and complete test as previously ordered Assessment & Plan (09/08/2024 12:02 PM [employer] RESEARCH [employer] EBUSINESS OPERATIONS): Referral for stress echo and cardiology follow-up Other hyperlipidemia 09/08/2024 Overview (09/08/2024): No results found for: CHOLTOT, HDL, TRIGLYCERIDE, LDLCALC Med: simvastatin, uncertain dose Assessment & Plan (09/08/2024 12:07 PM [employer] RESEARCH [employer] EBUSINESS OPERATIONS): Recommend weight loss and low-fat diet he needs to call the office to verify dose of simvastatin recheck lipid panel. History of implantation of penile prosthesis Mild intermittent asthma without complication Overview (09/08/2024): Has PFTs ordered as has not completed them has albuterol as needed which seems to be controlling his symptoms for now. Assessment & Plan (09/08/2024 12:06 PM SVP RESEARCH [employer] EBUSINESS OPERATIONS): Consider switching to Symbicort complete PFTs Family history of early CAD 09/08/2024 Overview (09/08/2024): Father had CAD at age 45 as well as brother Assessment & Plan (09/08/2024 12:04 PM SVP RESEARCH [employer] EBUSINESS OPERATIONS): Referral to cardiology optimize risk factors. Cerebral atrophy 09/08/2024 Overview (09/08/2024): 09/08/24 - per CT of head 2019, mild memory loss noted, small vessel disease. Assessment & Plan (09/08/2024 12:10 PM SVP RESEARCH [employer] EBUSINESS OPERATIONS): Stable. Optimized vascular risk factors and for clinical progression. History of pancreatitis 05/14/2019 Overview (09/08/2024): Reports this is related to previous heavy drinking in the past he no longer is drinking alcohol. Assessment & Plan (09/08/2024 12:05 PM SVP RESEARCH [employer] EBUSINESS OPERATIONS): No recent exacerbations does not drink alcohol any longer Nephrolithiasis 11/01/2017 Overview (09/08/2024): Follow-up with urology Assessment & Plan (09/08/2024 12:06 PM [employer]P RESEARCH [employer] EBUSINESS OPERATIONS): Follow with urology if symptoms recur or worsen Pulmonary nodules/lesions, multiple 12/15/2016 Erectile dysfunction 10/21/2015 Overview (09/08/2024): 09/08/24 -Managed by urology [facility]. [facility] in [facility] he also has penile prosthesis. Assessment & Plan (09/08/2024 12:03 PM [employer]P RESEARCH [employer] EBUSINESS OPERATIONS): Follow-up with urology Encounters Date Type Department Care Team Description 02/09/2025 Telephone [facility] Care - [facility] [id number] [place] [address] [address] [place] [phone] Olivier Ross MD 02/04/2025 Medication Prior Auth Encounter [facility] Prescription Management Dept [address] [place] [phone] Raymundo Fernandez, PHARMACIST 01/29/2025 10:00 AM CDT Office Visit [facility] - [facility] [id number] [place] [address] [address] [place] [address] Olivier Ross MD Type 2 diabetes mellitus with diabetic microalbuminuria, with long-term current use of insulin (CMS/[facility]) (Primary Dx); Benign hypertension; History of pancreatitis 01/29/2025 Results Follow-Up [facility] - [address] [place] [address] Olivier Ross MD POC HEMOGLOBIN A1C 01/13/2025 External Device Data ST[facility] ABSTRACTION Provider, Abstract 12/23/2024 External Device Data [place]STRACTION Provider, Abstract 12/23/2024 External Device Data [place] ABSTRACTION Provider, Abstract 12/23/2024 External Device Data [place]STRACTION Provider, Abstract 11/25/2024 External Device Data ST[facility] ABSTRACTION Provider, Abstract 11/21/2024 8:40 AM CDT Office Visit [facility] - [address] [place] [address] Olivier Ross MD Benign hypertension (Primary Dx); LIANNA (obstructive sleep apnea); Type 2 diabetes mellitus with diabetic microalbuminuria, with long-term current use of insulin (CMS/HCC); Other hyperlipidemia from Last 3 Months Immunizations Immunization Administration Dates Next Due INFLUENZA VACCINE QUADRIVALENT 6 MOS UP PF IM INFLUENZA VACCINE TRIVALENT SPLIT VIRUS, (6 MOS UP), 0.5ML (PF), IM 09/08/2024 Influenza Seasonal Unspecified Formulation PF IM 09/08/2024 Influenza, Unspecified Formulation 04/16/2015 Family History Medical History Relation Name Comments Diabetes Brother Heart Disease Father Mandeep Molina Hypertension Father Mandeep Molina Asthma Mother Sultana Lang Diabetes Mother Sultana Lang Heart Disease Mother Sultana Lang High Cholesterol Mother Sultana Lang Diabetes Sister Relation Name Status Comments Brother Father Mandeep Molina Mother Sultana Lang Sister Social History Tobacco Use Types Packs/Day Years Used Date Smoking Tobacco: Never Tobacco Cessation:Counseling Given: Not Answered Alcohol Use Standard Drinks/Week Comments Yes 0 [...] Sign Reading Time Taken Comments Blood Pressure 138/82 01/29/2025 10:13 AM CDT Pulse 77 01/29/2025 10:13 AM CDT Temperature 36.5 C (97.7 F) 01/29/2025 10:13 AM CDT Respiratory Rate 18 10/03/2024 7:35 AM [employer] OPERATIONS Oxygen Saturation 98% 01/29/2025 10:13 AM CDT Inhaled Oxygen Concentration - - Weight 109.3 kg (241 lb) 01/29/2025 10:13 AM CDT Height 182.9 cm (6') 01/29/2025 10:13 AM CDT Body Mass Index 32.69 01/29/2025 10:13 AM CDT Plan of Treatment Upcoming Encounters Date Type Department Care Team (Late st Contact Info) Description 03/31/2025 8:20 AM CDT Office Visit [facility] Primary Care - [facility] [id number] [place] [address] [address] [place] [address] [place] [address] [facility] [address] [place] [address] Health Maintenance Due Date Last Done Comments DIABETES ANNUAL RETINAL EXAM 11/26/1981 DTAP/TDAP/TD VACCINES (1 - Tdap) 11/26/1982 FIT-DNA Q 3 years 11/26/2008 FIT/FOBT Q 1 year 11/26/2008 Flex Sig/CT Colonography Q 5 years 11/26/2008 ZOSTER VACCINE (1 of 2) 11/26/2013 RSV VACCINE (60+ or ) (1 - Risk 60-74 years 1-dose series) 2023 INFLUENZA VACCINE (#1) 2025 , 09/08/2024, 05/14/2019 DIABETES: A1C (Auto Order) 05/01/202501/29, 09/08/2024, 04/14/2021 COLORECTAL SCREENING 07/14/2025 07/14/2020, 05/06/20 14 Colorectal Cancer Screening 07/14/2025 DIABETES HBA1C Q 6 MONTHS 07/31/20252024, 09/08/2024, 04/14/2021 DIABETES MICROALBUMIN ANNUAL SCREEN 09/08/202509/08 LDL CHOLESTEROL ANNUAL 09/08/2025 09/08/2024 DIABETES ANNUAL FOOT EXAM 01/29/2026 01/29/2025 Procedures Procedure Name Priority Date/Time Associated Diagnosis Comments POC HEMOGLOBIN A1C Routine 01/29/2025 12 :02 PM CDT Type 2 diabetes mellitus with diabetic microalbuminuria, with long-term current use of insulin ([facility]) MICROALBUMIN/CREATI NINE RATIO, RANDOM UR Routine 09/08/2024 11:32 AM [employer]US[employer] OPERATIONS Type 2 diabetes mellitus with other circulatory complication, with long-term current use of insulin ([facility]) Benign hypertension LIPID PANEL Routine 09/08/2024 11:24 AM [employer] EBUS[employer] OPERATIONS Type 2 diabetes mellitus with other circulatory complication, with long-term current use of insulin ([facility]) Benign hypertension Encounter for screening for cardiovascular disorders Physical exam, annual from Last 3 Months or Most Recently Relevant to Health Maintenance Results * (ABNORMAL) POC HEMOGLOBIN A1C (01/29/2025 12:02 PM CDT) HGB A1C POC 8.6(A) 4.0 - 6.0 % [facility] KIT LOT NUMBER POC [address] [facility] KIT EXP DATE POC 11/10/2026 [facility] Blood, capillary 01/29/2025 12:02 PM CDT us Olivier Ross MD POINT OF CARE TESTING Final Resu lt Performing Organization Address City/[facility]/ZIP Co de Phone Number [facility] CLIA# [id number] [address] [address] * (ABNORMAL) MICROALBUMIN/CREATININE RATIO, RANDOM UR (09/08/2024 11:32 AM [employer]PERATIONS) Creatinine, Urine 137 20 - 320 mg/dL [facility] MICROALBUMIN, URINE 18.4 See Note: mg/dL [facility] Comment: Reference Range: Reference Range Not established MICROALBUMIN/CREAT RATIO, UR 134(H) <30 mg/g creat [facility] Comment: The ADA defines abnormalities in albumin excretion as follows: Albuminuria Category Result (mg/g creatinine) Normal to Mildly increased <30 Moderately increased 30-299 Severely increased > OR = 300 The ADA recommends that at least two of three specimens collected within a 3-6 month period be abnormal before considering a patient to be within a diagnostic category. Test Performed at: [facility] [id number] [place] [address] Yamileth Rao MD Urine URINE SPECIMEN OBTAINED BY CLEAN CATCH PROCEDURE / Unknown 09/08/2024 11:32 AM [employer] 09/08/2024 11:32 AM [employer]PER[employer] us Sultana Chavarria INDUSTRIAL GAS SERVICER SUPERVISOR URINE ORDERABLES Final Result [facility] [phone] [facility] [id number] [place] [phone] * (ABNORMAL) LIPID PANEL (09/08/2024 11:24 AM [employer]PER[employer]) CHOLESTEROL 257(H) <200 mg/dL [facility] HDL 50 > OR = 40 mg/dL [facility] TRIGLYCERIDE 102 <150 mg/dL [facility] LDL CALCULATED 185(H) mg/dL (calc) [facility] Comment: Reference range: <100 Desirable range <100 mg/dL for primary prevention; <70 mg/dL for patients with CHD or diabetic patients with > or = 2 CHD risk factors. LDL-C is now calculated using the [employer] calculation, which is a validated novel method providing better accuracy than the Friedewald equation in the estimation of LDL-C. Troy SS et al. JESSICA. 2013;310(19): 0088-6011 (http://education.[employer]/faq/AYZ222) CHOL/HDL RATIO 5.1(H) <5.0 (calc) [facility] NON-HDL CHOLESTEROL 207(H) <130 mg/dL (calc) [facility] Comment: For patients with diabetes plus 1 major ASCVD risk factor, treating to a non-HDL-C goal of <100 mg/dL (LDL-C of <70 mg/dL) is considered a therapeutic option. Test Performed at: [facility] [id number] [place] [address] Yamileth Rao MD Blood 09/08/2024 11:2 4 AM [employer] 09/08/2024 11:29 AM [employer] us Sultana Chavarria NP CHEMISTRY ORDERABLES Final Resu lt [facility] [phone] [facility] [address] [place] [address] from Last 3 Months or Most Recently Relevant to Health Maintenance Insurance [employer] Commercial [employer] Commercial [id number] [id number] Care Teams Welcome Desk Agent Relationship Specialty [place] [address] [address] PCP - General Associate Entertainment Editor 09/08/24
--- OUTSIDE RECORDS SUMMARY | 2025-02-11 06:03 | XMS_ITS | Encounter Summary ---
Author Organization [facility] Address [address] [place] [address] Care Team Providers Care Screen Printer Helper Name Role Phone Hermes Macias MD Primary Care Provider [phone] Joyce Polk NP Primary Care Provider [phone] Encounter Details Date Type Department Care Team (Late st Contact Info) Description 07/11/2020 Prep for Procedure [facility] [place] [address] Albino Fink MD [address] [address] Social History Tobacco Use Types Packs/Day Years Used Date Smoking Tobacco: Never Smokeless Tobacco: Never Alcohol Use Standard Drinks/Week Comments Yes 0 (1 standard drink = 0.6 oz pur e alcohol) occassional vodka drinker Sex and Gender Information Value Date Recorded Sex Assigned at Not on file Legal Sex Male 5:09 PM CDT Gender Identity Not on file Sexual Orientation Not on file COVID-19 Exposure Response Date Recorded In the last month, have you been in contact with someone who was confirmed or suspected to have Coronavirus / COVID-19? No / Unsure 07/14/2020 7:47 AM HARVESTING MANAGER documented as of this encounter Functional Status * RETIRED Are you deaf or do you have serious difficulty hearing Answer Date of Assessment Author Status No 05/14/2019 4:46 AM CDT Activ e * RETIRED Are you blind or do you have serious difficulty seeing, even when wearing glasses? Answer Date of Assessment Author Status No 05/14/2019 4:46 AM CDT Activ e * Do you have serious difficulty walking or climbing stairs? Answer Date of Assessment Author Status No 05/14/2019 4:46 AM Ro Erwin RN Active * Do you have difficulty dressing or bathing? Answer Date of Assessment Author Status No 05/14/2019 4:46 AM Ro Erwin RN Active * Because of a physical, mental, or emotional condition, do you have difficulty doing errands alone such as visiting a doctor's office or shopping? Answer Date of Assessment Author Status No 05/14/2019 4:46 AM Ro Erwin RN Active documented as of this encounter Mental Status * Because of a physical, mental, or emotional condition, do you have serious difficulty concentrating, remembering, or making decisions? Answer Entry Date Author Status No 05/14/2019 4:46 AM Ro Erwin RN Active documented in this encounter Plan of Treatment Not on file documented as of this encounter Results * PRE-SURGICAL/PRE-PROCEDURE CORONAVIRUS (COVID 19) (07/11/2020 11:13 AM HARVESTING MANAGER) CORONAVIRUS SARS COV 2 PCR (RESP) NOT DETECTED NOT DETECTED 07/12/2020 11:31 AM HARVESTING MANAGER [facility] Comment: A Not Detected (negative) test result for this test means that SARS- CoV-2 RNA was not present in the specimen above the limit of detection. A negative result does not rule out the possibility of COVID-19 and should not be used as the sole basis for treatment or patient management decisions. If COVID-19 is still suspected, based on exposure history together with other clinical findings, re-testing should be considered in consultation with public health authorities. Laboratory test results should always be considered in the context of clinical observations and epidemiological data in making a final diagnosis and patient management decisions. Please review the Fact Sheets and FDA authorized labeling available for health care providers and patients using the following websites: https://www.[employer].com/home/Covid-19/HCP/[facility]/fact- sheet.html https://www.[employer].IEMO/home/Covid-19/Patients/ [facility]/fact-sheet.html This test has been authorized by the FDA under an Emergency Use Authorization (EUA) for use by authorized laboratories. Due to the current public health emergency, [facility] is receiving a high volume of samples from a wide variety of swabs and media for COVID-19 testing. In order to serve patients during this public health crisis, samples from appropriate clinical sources are being tested. Negative test results derived from specimens received in non-commercially manufactured viral collection and transport media, or in media and sample collection kits not yet authorized by FDA for COVID-19 testing should be cautiously evaluated and the patient potentially subjected to extra precautions such as additional clinical monitoring, including collection of an additional specimen. Methodology: Nucleic Acid Amplification Test (NAAT) includes RT-PCR or TMA Additional information about COVID-19 can be found at the [facility] website: www.[employer].IEMO/Covid19. Test performed at [facility] [address] [address] Director: ANA MARTINEZ DO,MPH FIRST TEST NO 07/11/2020 12:30 PM [facility] EMPLOYED IN HEALTHCARE NO 07/11/2020 12:30 PM [facility] SYMPTOMATIC DEFINED BY CDC NO 07/11/2020 12:30 PM [facility] DATE OF SYMPTOM ONSET NO 07/11/2020 12:57 PM [facility] HOSPITALIZATION STATUS NO 07/11/2020 12:30 PM [facility] PATIENT IN ICU NO 07/11/2020 12:30 PM [facility] RESIDENT OF [facility] UNKNOWN 07/11/2020 12:30 PM [facility] NOT 07/11/2020 12:57 PM [facility] PATIENT'S RACE BLACK OR 07/11/2020 12:30 PM [facility] ETHNICITY NONHISPANIC 07/11/2020 12:30 PM HARVESTING MANAGER [facility] SOURCE (QST) NASOPHARYNGEAL SWAB 07/11/2020 12:30 PM HARVESTING MANAGER [facility] NASOPHARYNGEAL SWAB / Unknown 07/11/2020 11:13 AM HARVESTING MANAGER us Albino Fink MD MICROBIOLOGY - GENERAL ALIZE SANTOS Final Result [facility] [address] [place] [address], [facility] [address] [place] [address], documented in this encounter Visit Diagnoses Diagnosis History of colon polyps- Primary Personal history of colonic polyps documented in this encounter Additional Health Concerns Infection Onset Date Last Indicated Resolved Time COVID-19 Rule Out 07/11/2020 07/11/2020 07/12/2020 11:32 AM HARVESTING MANAGER documented as of this encounter Care Teams Screen Printer Helper Relationship Specialty Start Date End Date Hermes Macias MD PCP - General FAMILY PRACTICE 01/01/20 02/09/22 [place] [address] PCP - General NURSE PRACTITIONER 02/10/22 documented as of this encounter
[2025-02-11] MEDS: KETOROLAC 30 MG/ML VIAL (*BKC) IM (07:02)
[2025-02-11] MEDS: diazePAM (*CRX) 5 MG TABLET PO (07:03)
[2025-02-11 07:10] VITALS: BP 154/93; PULSE 68; RESP 14; O2SAT 98
== END 2025-02-11 07:11 | disposition home or self-care (01) ==
PROVIDERS: Emergency Provider Student in an Organized Health Care Education/Training Program
DX: M25.561 Pain in right knee (principal); M16.12 Unilateral primary osteoarthritis, left hip; M47.816 Spondylosis without myelopathy or radiculopathy, lumbar region; Z18.89 Other specified retained foreign body fragments
CPT/HCPCS: 72131; 73502; 73562; 96372; 99284; A9270; J1885